=== PATIENT | female | born 1960 ===

== ENCOUNTER 2017-07-08 15:08 | Outpatient (CLI) | payer OTHER | END 2017-07-08 15:09 | disposition home or self-care (01) | LOC: LABHHL 15:08 | PROVIDERS: ATTEND Surgery | DX: C44.511 Basal cell carcinoma of skin of breast (principal); D48.7 Neoplasm of uncertain behavior of other specified sites; Z85.3 Personal history of malignant neoplasm of breast | CPT/HCPCS: 88305; 88342 ==